=== PATIENT | male | born 2000 | race Caucasian/White ===

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

== ENCOUNTER 2020-10-24 11:09 | Emergency (ER) | payer MEDICAID ==
--- NOTE | 2020-10-24 11:43 | ERPHSYRPT ---
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 Pt denies trauma/difficulty swallowing/ST/fever/cough/coryza. He has a h/o Langerhan's Cell Histiocytosis. Timing/Duration: days (2 days) Severity: mild ENT Location: throat (anterior cervical) Prearrival Treatment: no prearrival treatment Modifying Factors: Improves With: other (Worse w direct pressure) Associated Symptoms: denies symptoms Allergies/Adverse Reactions: NSAIDS (Non-Steroidal Anti-Inflamma Allergy (Verified 10/24/20 11:21) Penicillins Allergy (Verified 10/24/20 11:21) aspirin Adverse Reaction (Verified 10/24/20 11:21) ibuprofen [From Motrin] Adverse Reaction (Verified 10/24/20 11:21) bees Allergy (Uncoded 10/24/20 11:21) bees Home Medications: Albuterol Common Canister [Proventil Common Canister] 2 puff IH BIDPRN 09/21/13 [History] Hx Tetanus, Diphtheria Vaccination/Date Given: Yes Hx Influenza Vaccination/Date Given: Yes Hx Pneumococcal Vaccination/Date Given: No Travel Risk - International Travel Have you traveled outside of the country in past 3 weeks: No - Coronavirus Screening Are you exhibiting any of the following symptoms?: No Close contact with a COVID-19 positive Pt in past 14-21 Days: No - Vaccine Status Have you recieved a Covid-19 vaccination: No - Review of Systems Constitutional: No Symptoms Eyes: No Symptoms Ears, Nose, & Throat: No Symptoms Respiratory: No Symptoms Cardiac: No Symptoms Abdominal/Gastrointestinal: No Symptoms Genitourinary Symptoms: No Symptoms Musculoskeletal: No Symptoms Skin: No Symptoms Neurological: No Symptoms Psychological: No Symptoms Endocrine: No Symptoms Hematologic/Lymphatic: No Symptoms Immunological/Allergic: No Symptoms - Past Medical History Pertinent Past Medical History: Yes Neurological History: Other ENT History: No Pertinent History Cardiac History: No Pertinent History Respiratory History: Asthma Endocrine Medical History: No Pertinent History Musculoskeletal History: No Pertinent History GI Medical History: No Pertinent History History: No Pertinent History Psycho-Social History: No Pertinent History Male Reproductive Disorders: No Pertinent History Other Medical History: histiocytosis - Past Surgical History Past Surgical History: Yes Neuro Surgical History: Neurological Surgery Cardiac: No Pertinent History Respiratory: No Pertinent History Gastrointestinal: No Pertinent History Genitourinary: No Pertinent History Musculoskeletal: No Pertinent History Male Surgical History: No Pertinent History Other Surgical History: RESECTION OF SKULL LESION, TONSILS/ADENOIDS - Social History Smoking Status: Never smoker Exposure to second hand smoke: Yes Drug Use: none Patient Lives Alone: No Significant Family History: no pertinent family hx - Nursing Vital Signs Nursing Vital Signs: Initial Vital Signs Temperature 98.2 F 10/24/20 11:12 Pulse Rate 65 10/24/20 11:12 Blood Pressure 138/79 10/24/20 11:12 O2 Sat by Pulse Oximetry 100 10/24/20 11:12 Pain Scale Pain Intensity 2 - Physical Exam General Appearance: no apparent distress Eye Exam: bilateral eye: normal inspection, PERRL, EOMI Ear Exam: bilateral ear: auricle normal, canal normal, TM normal Nasal Exam: normal inspection Throat Exam: pharynx normal, moist mucus membranes, No dental tenderness, No excessive drooling, No foreign body, No mandibular swelling, No maxillary swelling, No pharynx swelling, No tongue swollen, No tonsillar exudate, No tonsillar swelling, No trismus, No uvula swelling, No voice changes Neck Exam: trachea midline, tender lateral (TTP lateral to thyroid cartilige/No palpable mass/No erythema), No JVD, No limited range of motion Cardiovascular/Respiratory Exam: normal breath sounds, regular rate/rhythm, heart sounds normal Abdominal Exam: non-tender, soft, no organomegaly Neurologic Exam: alert, oriented x 3, cooperative, brick wheeler II-XII nml as tested, normal mood/affect, nml station & gait, sensation nml, No motor deficits, No sensory deficit Skin Exam: normal color, warm, dry, No rash, No petechiae SpO2 Interpretation: normal SpO2: 100 O2 Delivery: Room Air - Course Nursing assessment & vital signs reviewed: Yes - CT Exams Soft Tissue Neck CT Interpretation: Tele-radiologist Report (NAD) Ordered Tests: Active Orders 24 hr Category Date Time Status NECK WITH CONTRAST [CT] Routine Exams 10/24/20 11:57 Taken - Progress Progress: unchanged Counseled pt/family regarding: need for follow-up - Departure Departure Disposition: Home Clinical Impression: Anterior neck pain Condition: Stable Critical Care Time: No Referrals: BHAVESH OJSHUA [Primary Care Provider] - Instructions: Generalized Neck Pain (DC) Additional Instructions: Follow up with your family MD Return to ER for increasing pain/swelling/redness/Temperature greater than 100.5
[2020-10-24 13:09] VITALS: BP 134/66; PULSE 52
[2020-10-24 15:42] VITALS: O2SAT 100
--- NOTE | 2020-10-24 18:58 | XRAY ---
Indication: Left anterior neck pain 2 days. Multiple contiguous axial images obtained through the neck using 60 cc Isovue 370 contrast. Comparison: None Parotid and submandibular glands are bilaterally symmetric. No pathologic cervical or supraclavicular lymphadenopathy. Thyroid gland enhances homogeneously. Major arteries and veins are normal in course and caliber. Supra and infraglottic airway are widely patent. Normal epiglottis. Cervical spine intact. No acute fracture or suspicious bony lesions. Base of the brain and lung apices are unremarkable. Impression: Negative CT neck with contrast exam. Comment: Preliminary interpretation was made by [facility]. No critical discrepancy.
== END 2020-10-24 13:09 | disposition home or self-care (01) ==
LOC: ED 11:09
DX: M54.2 Cervicalgia (principal)
CPT/HCPCS: 36000; 70491; 99284

== ENCOUNTER 2021-02-16 10:29 | Emergency (ER) | payer MEDICAID ==
[2021-02-16 11:19] LABS: Appearance CLEAR (CLEAR); Bilirubin NEGATIVE (NEGATIVE); Blood NEGATIVE Ery/ul (0-5); Glucose NEGATIVE (NEGATIVE); Ketones SMALL (NEGATIVE); Leukocyte Esterase NEGATIVE (NEGATIVE); Nitrite NEGATIVE (NEGATIVE); Protein,Urine Dip NEGATIVE (Negative); Specific Gravity 1.016 (1.005-1.025); Urobilinogen 4 mg/dL (0-1)
--- NOTE | 2021-02-16 11:24 | ERPHSYRPT ---
- History of Present Illness Time Seen by Provider: 02/16/21 10:50 Source: patient Exam Limitations: no limitations Patient Subjective Stated Complaint: Pt states that he has been to 2 different hospitals in the past 2 days due to anxiety and he is now at this ER due to an xiety and states that it is now causing him difficulty breathing and his fingers tingling, pt was given lorazepam 0.5 mg and Arnuity inhailer from one of the other hospitals, pt has called Dr. Yoon office and has an appt for Triage Nursing Assessment: Pt brought self to the ER, hypertensive, denies pain, states that anxiety is a new diagnosis to him and it's causing more anxiety, skin n/w/d, pulses normal, breathing normal, doesn't appear to be in any distre ss Physician History: This is a 20-year-old white male who has symptoms consistent with anxiety and panic disorder. This is the third hospital visit with the same symptoms of shortness of breath, feeling of doom numbness and tingling in his lower extremities and mild chest pain. Patient was seen at [facility] 2 days ago and diagnosed with anxiety disorder. That facility sent in a prescription for lorazepam which he just picked up this morning. Yesterday e , patient was seen at [facility] emergency department for similar symptoms. The diagnosis was the same. That is, anxiety/panic disorder. Yesterday, because of his symptoms, patient took 4 hydroxyzine tablets (strength unknown) within 2 to 3-hour period of time. Patient states that when he is not feeling well, described as short of breath or nauseated, he takes Sudafed. He did yesterday as well. He occasionally uses marijuana. Patient denies methamphetamine use. Patient has an appointment to see his primary care physician, Dr. Singh tomorrow. He just picked up this prescription today and took 1 tablet of lorazepam 0.5 mg. Patient denies suicidal or homicidal thoughts or ideation. Patient also has a history of asthma. His room air oxygenation saturation levels 100%. Patient has history of Langerhans' cell histiocytosis Timing/Duration: day(s) (3) Severity of Symptoms-Max: mild Severity of Symptoms-Current: mild Associated Symptoms: anxiety Previous symptoms: same symptoms as today, recently seen, recently treated Allergies/Adverse Reactions: NSAIDS (Non-Steroidal Anti-Inflamma Allergy (Verified 02/16/21 10:47) Penicillins Allergy (Verified 02/16/21 10:47) aspirin Adverse Reaction (Verified 02/16/21 10:47) ibuprofen [From Motrin] Adverse Reaction (Verified 02/16/21 10:47) bees Allergy (Uncoded 02/16/21 10:47) bees Home Medications: Albuterol Common Canister [Proventil Common Canister] 2 puff IH BIDPRN 09/21/13 [History] Fluticasone Furoate [Arnuity Ellipta] 1 mcg IH UD 02/16/21 [History] Lorazepam 0.5 mg [Ativan 0.5 MG] 0.5 mg PO BID 02/16/21 [History] Hx Tetanus, Diphtheria Vaccination/Date Given: Yes Hx Influenza Vaccination/Date Given: Yes Hx Pneumococcal Vaccination/Date Given: No Travel Risk - International Travel Have you traveled outside of the country in past 3 weeks: No - Coronavirus Screening Are you exhibiting any of the following symptoms?: No Close contact with a COVID-19 positive Pt in past 14-21 Days: No - Vaccine Status Have you recieved a Covid-19 vaccination: No - Past Medical History Pertinent Past Medical History: Yes Neurological History: Other ENT History: No Pertinent History Cardiac History: No Pertinent History Respiratory History: Asthma Endocrine Medical History: No Pertinent History Musculoskeletal History: No Pertinent History GI Medical History: No Pertinent History History: No Pertinent History Psycho-Social History: Anxiety Male Reproductive Disorders: No Pertinent History Other Medical History: histiocytosis - Past Surgical History Past Surgical History: Yes Neuro Surgical History: Neurological Surgery Cardiac: No Pertinent History Respiratory: No Pertinent History Gastrointestinal: No Pertinent History Genitourinary: No Pertinent History Musculoskeletal: No Pertinent History Male Surgical History: No Pertinent History Other Surgical History: RESECTION OF SKULL LESION, TONSILS/ADENOIDS - Social History Smoking Status: Never smoker Exposure to second hand smoke: Yes Drug Use: marijuana Patient Lives Alone: No Significant Family History: no pertinent family hx - Review of Systems Constitutional: No Symptoms Eyes: No Symptoms Ears, Nose, & Throat: No Symptoms Respiratory: Dyspnea Cardiac: Chest Pain, Palpitations Abdominal/Gastrointestinal: No Symptoms Genitourinary Symptoms: No Symptoms Musculoskeletal: No Symptoms Skin: No Symptoms Neurological: No Symptoms Psychological: Anxiety, No Suicidal Ideations, No Homicidal Ideations, No Emotional Lability Endocrine: No Symptoms Hematologic/Lymphatic: No Symptoms Immunological/Allergic: No Symptoms All Other Systems: Reviewed and Negative - Nursing Vital Signs Nursing Vital Signs: Initial Vital Signs Temperature 99.7 F 02/16/21 10:37 Pulse Rate 77 02/16/21 10:37 Blood Pressure 145/90 02/16/21 10:37 O2 Sat by Pulse Oximetry 100 02/16/21 10:37 Pain Scale Pain Intensity 0 - Physical Exam General Appearance: no apparent distress, alert, anxiety Eyes, Ears, Nose, Throat Exam: normal ENT inspection, moist mucous membranes Neck Exam: normal inspection, non-tender, supple, full range of motion Respiratory Exam: normal breath sounds, lungs clear, airway intact, No chest tenderness, No respiratory distress Cardiovascular Exam: regular rate/rhythm, normal heart sounds, normal peripheral pulses Neurological Exam: alert, normal mood/affect, 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 The EKG readout says suggests acute pericarditis. However the patient is not having that type of symptom. There is no comparison EKG.) Ordered Tests: Active Orders 24 hr Category Date Time Status EKG-ER Only STAT Care 02/16/21 11:04 Active CBC W DIFF Stat Lab 02/16/21 11:20 Completed CMP Stat Lab 02/16/21 11:20 Completed D-DIMER QUANTITATIVE Stat Lab 02/16/21 11:32 Completed MAGNESIUM Stat Lab 02/16/21 11:20 Completed TROPONIN Q3H Lab 02/16/21 11:20 Completed TROPONIN Q3H Lab 02/16/21 14:15 Ordered TROPONIN Q3H Lab 02/16/21 17:15 Ordered TROPONIN Q3H Lab 02/16/21 20:15 Ordered TROPONIN Q3H Lab 02/16/21 23:15 Ordered UA W/RFX UR CULTURE Stat Lab 02/16/21 11:11 Completed Urine Triage Profile Stat Lab 02/16/21 11:11 Completed Lab/Rad Data: Laboratory Result Diagrams 02/16/21 11:20 02/16/21 11:20 Laboratory Results 02/16/21 02/16/21 02/16/21 Range/Units 11:32 11:20 11:20 WBC (4.0-10.5) K/mm3 RBC (4.1-5.6) M/mm3 Hgb (12.5-18.0) gm/dl Hct (42-50) % MCV (78-100) fl MCH (26-32) pg MCHC (32-36) g/dl RDW (11.5-14.0) % Plt Count (150-450) K/mm3 MPV (7.5-11.0) fl Gran % (36.0-66.0) % Eos # (Auto) (0-0.5) Absolute Lymphs (auto) (1.0-4.6) Absolute Monos (auto) (0.0-1.3) Lymphocytes % (24.0-44.0) % Monocytes % (0.0-12.0) % Eosinophils % (0.00-5.0) % Basophils % (0.0-0.4) % Absolute Granulocytes (1.4-6.9) Basophils # (0-0.4) D-Dimer < 215 L (215-500) ng/mL Sodium 139 (137-145) mmol/L Potassium 3.9 (3.5-5.1) mmol/L Chloride 105 (98-107) mmol/L Carbon Dioxide 18 L (22-30) mmol/L Anion Gap 20.1 H (5-15) MEQ/L BUN 9 (9-20) mg/dL Creatinine 0.97 (0.66-1.25) mg/dL Estimated GFR > 60.0 ML/MIN Glucose 99 (74-106) mg/dL Calcium 10.1 (8.4-10.2) mg/dL Magnesium 1.7 (1.6-2.3) mg/dL Total Bilirubin 1.20 (0.2-1.3) mg/dL AST 23 (17-59) U/L ALT 12 (0-50) U/L Alkaline Phosphatase 73 (38-126) U/L Troponin I < 0.012 (0.000-0.034) ng/mL Serum Total Protein 7.9 (6.3-8.2) g/dL Albumin 4.8 (3.5-5.0) g/dL Urine Color (YELLOW) Urine Appearance (CLEAR) Urine pH (5-6) Ur Specific [place] (1.005-1.025) Urine Protein (Negative) Urine Ketones (NEGATIVE) Urine Blood (0-5) Clyde/ul Urine Nitrite (NEGATIVE) Urine Bilirubin (NEGATIVE) Urine Urobilinogen (0-1) mg/dL Ur Leukocyte Esterase (NEGATIVE) Urine WBC (Auto) (0-5) /HPF Urine RBC (Auto) (0-2) /HPF Urine Culture Reflexed (NO) Urine Glucose (NEGATIVE) mg/dL Urine Opiates Level (NEGATIVE) Ur Methadone (NEGATIVE) Urine Barbiturates (NEGATIVE) Ur Phencyclidine (PCP) (NEGATIVE) Urine Amphetamine (NEGATIVE) U Benzodiazepine Level (NEGATIVE) Urine Cocaine (NEGATIVE) Urine Marijuana (THC) (NEGATIVE) 02/16/21 02/16/21 02/16/21 Range/Units 11:20 11:11 11:11 WBC 6.8 (4.0-10.5) K/mm3 RBC 5.21 (4.1-5.6) M/mm3 Hgb 15.6 (12.5-18.0) gm/dl Hct 46.0 (42-50) % MCV 88.3 (78-100) fl MCH 29.9 (26-32) pg MCHC 33.9 (32-36) g/dl RDW 12.4 (11.5-14.0) % Plt Count 220 (150-450) K/mm3 MPV 11.7 H (7.5-11.0) fl Gran % 73.9 H (36.0-66.0) % Eos # (Auto) 0.01 (0-0.5) Absolute Lymphs (auto) 1.23 (1.0-4.6) Absolute Monos (auto) 0.52 (0.0-1.3) Lymphocytes % 18.1 L (24.0-44.0) % Monocytes % 7.6 (0.0-12.0) % Eosinophils % 0.1 (0.00-5.0) % Basophils % 0.3 (0.0-0.4) % Absolute Granulocytes 5.02 (1.4-6.9) Basophils # 0.02 (0-0.4) D-Dimer (215-500) ng/mL Sodium (137-145) mmol/L Potassium (3.5-5.1) mmol/L Chloride (98-107) mmol/L Carbon Dioxide (22-30) mmol/L Anion Gap (5-15) MEQ/L BUN (9-20) mg/dL Creatinine (0.66-1.25) mg/dL Estimated GFR ML/MIN Glucose (74-106) mg/dL Calcium (8.4-10.2) mg/dL Magnesium (1.6-2.3) mg/dL Total Bilirubin (0.2-1.3) mg/dL AST (17-59) U/L ALT (0-50) U/L Alkaline Phosphatase (38-126) U/L Troponin I (0.000-0.034) ng/mL Serum Total Protein (6.3-8.2) g/dL Albumin (3.5-5.0) g/dL Urine Color YELLOW (YELLOW) Urine Appearance CLEAR (CLEAR) Urine pH 7.0 (5-6) Ur Specific [place] 1.016 (1.005-1.025) Urine Protein NEGATIVE (Negative) Urine Ketones SMALL (NEGATIVE) Urine Blood NEGATIVE (0-5) Clyde/ul Urine Nitrite NEGATIVE (NEGATIVE) Urine Bilirubin NEGATIVE (NEGATIVE) Urine Urobilinogen 4 (0-1) mg/dL Ur Leukocyte Esterase NEGATIVE (NEGATIVE) Urine WBC (Auto) NONE (0-5) /HPF Urine RBC (Auto) NONE (0-2) /HPF Urine Culture Reflexed NO (NO) Urine Glucose NEGATIVE (NEGATIVE) mg/dL Urine Opiates Level NEGATIVE (NEGATIVE) Ur Methadone NEGATIVE (NEGATIVE) Urine Barbiturates NEGATIVE (NEGATIVE) Ur Phencyclidine (PCP) NEGATIVE (NEGATIVE) Urine Amphetamine NEGATIVE (NEGATIVE) U Benzodiazepine Level NEGATIVE (NEGATIVE) Urine Cocaine NEGATIVE (NEGATIVE) Urine Marijuana (THC) POSITIVE (NEGATIVE) - Departure Departure Disposition: Home Clinical Impression: Anxiety Condition: Stable Critical Care Time: No Referrals: BHAVESH SINGH [Primary Care Provider] - Additional Instructions: Take your medication as prescribed. Keep your medical appointment with your primary care doctor that is scheduled tomorrow.
[2021-02-16 11:34] LABS: Absolute Neutrophil Ct (ANC) 5.02 (1.4-6.9); BASOPHIL % 0.3 % (0.0-0.4); Basophil (Absolute #) 0.02 (0-0.4); Eosinophil % 0.1 % (0.00-5.0); Eosinophil (Absolute #) 0.01 (0-0.5); Hemoglobin 15.6 gm/dl (12.5-18.0); Lymphocyte (Absolute #) 1.23 (1.0-4.6); Lymphocytes % 18.1 % (24.0-44.0); Mean Cell Volume 88.3 fl (78-100); Mean Corpuscular Hemoglobin 29.9 pg (26-32); Mean Corpuscular Hgb Concent. 33.9 g/dl (32-36); Mean Platelet Volume 11.7 fl (7.5-11.0); Monocyte (Absolute #) 0.52 (0.0-1.3); Monocytes % 7.6 % (0.0-12.0); Neutrophil % 73.9 % (36.0-66.0); Platelet Count 220 K/mm3 (150-450); Red Blood Count 5.21 M/mm3 (4.1-5.6); Red Cell Distribution Width 12.4 % (11.5-14.0); White Blood Count 6.8 K/mm3 (4.0-10.5)
[2021-02-16 11:36] LABS: Amphetamine,Urine NEGATIVE (NEGATIVE); Barbiturate,Urine NEGATIVE (NEGATIVE); Benzodiazepine,Urine NEGATIVE (NEGATIVE); Cocaine,Urine NEGATIVE (NEGATIVE); Methadone,Urine NEGATIVE (NEGATIVE); Opiate,Urine NEGATIVE (NEGATIVE); PCP,Urine NEGATIVE (NEGATIVE); THC,Urine POSITIVE (NEGATIVE)
[2021-02-16 12:06] LABS: ALBUMIN 4.8 g/dL (3.5-5.0); ALKALINE PHOSPHATASE 73 U/L (38-126); ANION GAP 20.1 MEQ/L (5-15); BLOOD UREA NITROGEN 9 mg/dL (9-20); CHLORIDE 105 mmol/L (98-107); Calcium 10.1 mg/dL (8.4-10.2); Carbon Dioxide 18 mmol/L (22-30); Creatinine 1 0.97 mg/dL (0.66-1.25); EST GLOMERULAR FILTRATION RATE > 60.0 ML/MIN; Glucose 99 mg/dL (74-106); MAGNESIUM 1.7 mg/dL (1.6-2.3); Potassium 3.9 mmol/L (3.5-5.1); SGOT/AST 23 U/L (17-59); SGPT/ALT 12 U/L (0-50); SODIUM 139 mmol/L (137-145); Total Protein 7.9 g/dL (6.3-8.2)
[2021-02-16 12:17] VITALS: BP 134/71; PULSE 60
[2021-02-16 12:39] VITALS: O2SAT 100
== END 2021-02-16 12:45 | disposition home or self-care (01) ==
LOC: ED 10:29
DX: F41.9 Anxiety disorder, unspecified (principal)
CPT/HCPCS: 36415; 80053; 80307; 81001; 83735; 84484; 85025; 85379; 93005; 99284

== ENCOUNTER 2021-03-22 14:48 | Emergency (ER) | payer MEDICAID ==
[2021-03-22] MEDS ORDERED: KLONOPIN PO STA (15:23)
[2021-03-22 16:00] VITALS: BP 143/92; PULSE 64
[2021-03-22 16:04] VITALS: O2SAT 99
--- NOTE | 2021-03-22 16:04 | ERPHSYRPT ---
- History of Present Illness Time Seen by Provider: 03/22/21 14:55 Patient Subjective Stated Complaint: anxiety Triage Nursing Assessment: Patient ambulated back to ED and transferred self to bed. Patient A+O X3. Patient's skin pink, warm and dry. Patient complains of feeling anxious, numb and jittery. Patient also complains of N/V. Patient states he was seen in [facility] care this am for cough/congestion and prescribed Prednisone 40mg and Tessalon pearls. Patient has also been without his Klonopin for 5 days. Patient denies pain or discomfort. Patient was also tested for COVID today with results pending. Physician History: Patient is a 20-year-old male who has been on constant doses of Klonopin for several weeks. He presents after he ran out and could not get into his family physician's office because he had symptoms of Covid. He presents to the ER requesting a refill on his Klonopin. Timing/Duration: yesterday Severity of Symptoms-Max: moderate Severity of Symptoms-Current: moderate Associated Symptoms: anxiety Previous symptoms: same symptoms as today Allergies/Adverse Reactions: NSAIDS (Non-Steroidal Anti-Inflamma Allergy (Verified 03/22/21 14:54) Penicillins Allergy (Verified 03/22/21 14:54) aspirin Adverse Reaction (Verified 03/22/21 14:54) ibuprofen [From Motrin] Adverse Reaction (Verified 03/22/21 14:54) bees Allergy (Uncoded 03/22/21 14:54) bees Home Medications: Albuterol Common Canister [Proventil Common Canister] 2 puff IH BIDPRN 09/21/13 [History] Fluticasone Furoate [Arnuity Ellipta] 1 mcg IH UD 02/16/21 [History] Paroxetine HCl 20 mg [Paxil 20 MG] 1 tab PO DAILY 03/22/21 [History] Hx Tetanus, Diphtheria Vaccination/Date Given: Yes Hx Influenza Vaccination/Date Given: No Hx Pneumococcal Vaccination/Date Given: No Immunizations Up to Date: Yes Travel Risk - International Travel Have you traveled outside of the country in past 3 weeks: No - Coronavirus Screening Are you exhibiting any of the following symptoms?: Yes Symptoms: Cough: New Onset Close contact with a COVID-19 positive Pt in past 14-21 Days: No - Vaccine Status Have you recieved a Covid-19 vaccination: No - Past Medical History Pertinent Past Medical History: Yes Neurological History: Other ENT History: No Pertinent History Cardiac History: No Pertinent History Respiratory History: Asthma Endocrine Medical History: No Pertinent History Musculoskeletal History: No Pertinent History GI Medical History: No Pertinent History History: No Pertinent History Psycho-Social History: Anxiety Male Reproductive Disorders: No Pertinent History Other Medical History: histiocytosis - Past Surgical History Past Surgical History: Yes Neuro Surgical History: Neurological Surgery Cardiac: No Pertinent History Respiratory: No Pertinent History Gastrointestinal: No Pertinent History Genitourinary: No Pertinent History Musculoskeletal: No Pertinent History Male Surgical History: No Pertinent History Other Surgical History: RESECTION OF SKULL LESION, TONSILS/ADENOIDS - Social History Smoking Status: Never smoker Exposure to second hand smoke: Yes Drug Use: marijuana Patient Lives Alone: No Significant Family History: no pertinent family hx - Review of Systems Constitutional: No Fever, No Chills Eyes: No Symptoms Ears, Nose, & Throat: No Symptoms Respiratory: No Cough, No Dyspnea Cardiac: No Chest Pain, No Edema, No Syncope Abdominal/Gastrointestinal: No Abdominal Pain, No Nausea, No Vomiting, No Diarrhea Genitourinary Symptoms: No Dysuria Musculoskeletal: No Back Pain, No Neck Pain Skin: No Rash Neurological: No Dizziness, No Focal Weakness, No Sensory Changes Psychological: No Symptoms Endocrine: No Symptoms All Other Systems: Reviewed and Negative - Nursing Vital Signs Nursing Vital Signs: Initial Vital Signs Temperature 98.5 F 03/22/21 14:55 Pulse Rate 74 03/22/21 14:55 Respiratory Rate 18 03/22/21 14:55 Blood Pressure 179/103 03/22/21 14:55 O2 Sat by Pulse Oximetry 99 03/22/21 14:55 Pain Scale Pain Intensity 0 - Physical Exam General Appearance: mild distress Eyes, Ears, Nose, Throat Exam: normal ENT inspection, moist mucous membranes Neck Exam: normal inspection, non-tender, supple Respiratory Exam: normal breath sounds, lungs clear, No respiratory distress Cardiovascular Exam: regular rate/rhythm, No edema Gastrointestinal/Abdominal Exam: soft, No tenderness, No distention Extremities Exam: normal inspection, normal range of motion, No evidence of injury, No edema Current Suicidality: denies suicide plan Neurological Exam: alert, sagger soak II-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 nml as tested, oriented x 3 Skin Exam: normal color, warm, dry, No rash SpO2: 99 - Course Nursing assessment & vital signs reviewed: Yes Ordered Tests: Medication Summary Discontinued Medications Generic Name Dose Route Start Last Admin Trade Name Clarita PRN Reason Stop Dose Admin Clonazepam 1 mg 03/22/21 15:23 03/22/21 15:34 Klonopin PO 03/22/21 15:24 1 mg ONCE STA Administration - Progress Progress: improved - Departure Departure Disposition: Home Clinical Impression: Anxiety Condition: Stable Critical Care Time: No Referrals: BHAVESH JOSHUA [Primary Care Provider] - Instructions: Anxiety, Adult (DC) Prescriptions: Clonazepam [Klonopin] 0.5 mg PO TID 3 Days #9 tablet
== END 2021-03-22 16:08 | disposition home or self-care (01) ==
LOC: ED 14:48
DX: F41.9 Anxiety disorder, unspecified (principal)
CPT/HCPCS: 99283

== ENCOUNTER 2022-04-02 20:50 | Emergency (ER) | payer MEDICAID ==
[2022-04-02 21:27] VITALS: O2SAT 98
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
[2022-04-02] MEDS ORDERED: Sodium Chloride 0.9% 1000 ML 1,000 ML IV STA (22:01)
[2022-04-02 22:22] LABS: Absolute Neutrophil Ct (ANC) 10.77 x10^3/uL (1.4-6.9); Basophil (Absolute #) 0.04 x10^3/uL (0-0.4); Eosinophil % 0.2 % (0.00-5.0); Eosinophil (Absolute #) 0.03 x10^3/uL (0-0.5); Hemoglobin 14.2 g/dL (12.5-18.0); Lymphocytes % 7.9 % (24.0-44.0); Mean Cell Volume 90.1 fL (78-100); Mean Corpuscular Hemoglobin 29.8 pg (26-32); Mean Platelet Volume 11.9 fL (7.5-11.0); Monocyte (Absolute #) 0.74 x10^3/uL (0.0-1.3); Monocytes % 5.8 % (0.0-12.0); Neutrophil % 85.2 % (36.0-66.0); Platelet Count 223 x10^3/uL (150-450); Red Blood Count 4.77 x10^6/uL (4.1-5.6); Red Cell Distribution Width 11.5 % (11.5-14.0); White Blood Count 12.7 x10^3/uL (4.0-10.5)
[2022-04-02 22:35] LABS: ALBUMIN 4.6 g/dL (3.5-5.0); ALKALINE PHOSPHATASE 74 U/L (38-126); ANION GAP 14.3 MEQ/L (5-15); BLOOD UREA NITROGEN 14 mg/dL (9-20); CHLORIDE 103 mmol/L (98-107); Calcium 9.4 mg/dL (8.4-10.2); Carbon Dioxide 25 mmol/L (22-30); Creatinine 1 1.15 mg/dL (0.66-1.25); EST GLOMERULAR FILTRATION RATE > 60.0 ML/MIN; Glucose 88 mg/dL (74-106); LIPASE 55 U/L (23-300); Potassium 3.9 mmol/L (3.5-5.1); SGOT/AST 41 U/L (17-59); SGPT/ALT 25 U/L (0-50); SODIUM 139 mmol/L (137-145); Total Protein 7.9 g/dL (6.3-8.2)
[2022-04-02 23:27] VITALS: BP 141/65
[2022-04-02] MEDS ORDERED: MORPHINE SULFATE 4 MG INJ IV ONE (23:45)
[2022-04-02] MEDS ORDERED: MORPHINE SULFATE 4 MG INJ ONE (23:51)
[2022-04-02] MEDS ORDERED: Sodium Chloride 0.9% 1000 ML 1,000 ML ONE (23:51)
[2022-04-03 00:02] VITALS: PULSE 64
[2022-04-03] MEDS ORDERED: Adacel Vial IM ONE ×2 (00:03→00:07)
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
== END 2022-04-03 00:45 | disposition home or self-care (01) ==
LOC: ED 20:50
DX: S06.0X0A Concussion without loss of consciousness, initial encounter (principal); S81.001A Unspecified open wound, right knee, initial encounter; S83.91XA Sprain of unspecified site of right knee, initial encounter; S80.812A Abrasion, left lower leg, initial encounter; S80.811A Abrasion, right lower leg, initial encounter; S40.812A Abrasion of left upper arm, initial encounter; S40.811A Abrasion of right upper arm, initial encounter; T14.8XXA Other injury of unspecified body region, initial encounter; V86.05XA Driver of 3- or 4- wheeled all-terrain vehicle (ATV) injured in traffic accident, initial encounter; Z79.899 Other long term (current) drug therapy; Z28.310 Unvaccinated for COVID-19
CPT/HCPCS: 36000; 36415; 70450; 71250; 72125; 73700; 74176; 80053; 83605; 83690; 84484; 85025; 90471; 90715; 93005; 96374; 99285; J2270

== ENCOUNTER 2022-05-30 12:59 | Emergency (ER) | payer MEDICAID ==
--- NOTE | 2022-05-30 13:12 | ERPHSYRPT ---
- History of Present Illness Time Seen by Provider: 05/30/22 13:12 Source: patient Exam Limitations: no limitations Physician History: This is a 22-year-old white male patient of Dr. Singh who has a history of anxiety and panic disorder and presents with a cough for 2 weeks which has not worsened but has been persistent and who also has run out of his Klonopin anxiet y medicine. Symptoms have anxiety have been worse in the last 2 to 3 days. Patient denies being suicidal. He denies being homicidal. Patient has a history of Langerhans' cell histiocytosis. Patient has not been on any new medications. He denies illicit drug use. He cannot refill his Klonopin until 06/01/2022. Timing/Duration: day(s) (2 to 3 days) Severity of Symptoms-Max: mild (To moderate) Severity of Symptoms-Current: mild (To moderate) Context related to: other (Health anxiety issues) Associated Symptoms: anxiety Previous symptoms: same symptoms as today, no recent treatment Allergies/Adverse Reactions: NSAIDS (Non-Steroidal Anti-Inflamma Allergy (Verified 05/30/22 13:05) Penicillins Allergy (Verified 05/30/22 13:05) aspirin Adverse Reaction (Verified 05/30/22 13:05) ibuprofen [From Motrin] Adverse Reaction (Verified 05/30/22 13:05) bees Allergy (Uncoded 05/30/22 13:05) bees Home Medications: Albuterol Common Canister [Proventil Common Canister] 2 puff IH BIDPRN 09/21/13 [History] Fluticasone Furoate [Arnuity Ellipta] 1 mcg IH UD 02/16/21 [History] Paroxetine HCl 20 mg [Paxil 20 MG] 1 tab PO DAILY 03/22/21 [History] Hx Tetanus, Diphtheria Vaccination/Date Given: No Hx Influenza Vaccination/Date Given: No Hx Pneumococcal Vaccination/Date Given: No Travel Risk - International Travel Have you traveled outside of the country in past 3 weeks: No - Coronavirus Screening Are you exhibiting any of the following symptoms?: No Close contact with a COVID-19 positive Pt in past 14-21 Days: No - Vaccine Status Have you recieved a Covid-19 vaccination: No - Past Medical History Pertinent Past Medical History: Yes Neurological History: Other ENT History: No Pertinent History Cardiac History: No Pertinent History Respiratory History: Asthma Endocrine Medical History: No Pertinent History Musculoskeletal History: No Pertinent History GI Medical History: No Pertinent History History: No Pertinent History Psycho-Social History: Anxiety Male Reproductive Disorders: No Pertinent History Other Medical History: histiocytosis - Past Surgical History Past Surgical History: Yes Neuro Surgical History: Neurological Surgery Cardiac: No Pertinent History Respiratory: No Pertinent History Gastrointestinal: No Pertinent History Genitourinary: No Pertinent History Musculoskeletal: No Pertinent History Male Surgical History: No Pertinent History Other Surgical History: RESECTION OF SKULL LESION, TONSILS/ADENOIDS - Social History Smoking Status: Never smoker Exposure to second hand smoke: No Drug Use: marijuana Patient Lives Alone: No Significant Family History: no pertinent family hx - Review of Systems Constitutional: No Symptoms Eyes: No Symptoms Ears, Nose, & Throat: No Symptoms Respiratory: Cough Cardiac: No Symptoms Abdominal/Gastrointestinal: No Symptoms Genitourinary Symptoms: No Symptoms Musculoskeletal: No Symptoms Skin: No Symptoms Neurological: No Symptoms Psychological: Anxiety Endocrine: No Symptoms Hematologic/Lymphatic: No Symptoms Immunological/Allergic: No Symptoms All Other Systems: Reviewed and Negative - Nursing Vital Signs Nursing Vital Signs: Initial Vital Signs Temperature 98.9 F 05/30/22 13:07 Pulse Rate 69 05/30/22 13:07 Respiratory Rate 14 05/30/22 13:07 Blood Pressure 153/89 05/30/22 13:07 O2 Sat by Pulse Oximetry 100 05/30/22 13:07 Pain Scale Pain Intensity 0 - Physical Exam General Appearance: no apparent distress, alert, anxiety Eyes, Ears, Nose, Throat Exam: normal ENT inspection, moist mucous membranes Neck Exam: normal inspection, non-tender, supple, full range of motion Respiratory Exam: normal breath sounds, lungs clear, airway intact, No chest tenderness, No respiratory distress Cardiovascular Exam: regular rate/rhythm, normal heart sounds, normal peripheral pulses Gastrointestinal/Abdominal Exam: soft, normal bowel sounds, No tenderness Current Suicidality: denies suicide plan Neurological Exam: alert, normal mood/affect, cotton chopper II-XII nml as tested, oriented x 3, anxious Appearance: appropriate appearance, appropriate insight Behavior/Eye Contact/Speech: alert & cooperative, good eye contact, normal speech Thoughts/Hallucinations: normal thought pattern, no apparent hallucination Skin Exam: normal color, warm, dry SpO2 Interpretation: normal O2 Delivery: Room Air - Course Nursing assessment & vital signs reviewed: Yes Ordered Tests: Active Orders 24 hr Category Date Time Status CHEST 1 VIEW (PORTABLE) Stat Exams 05/30/22 13:19 Completed CBC W DIFF Stat Lab 05/30/22 13:40 Completed CMP Stat Lab 05/30/22 13:40 Completed Medication Summary Discontinued Medications Generic Name Dose Route Start Last Admin Trade Name Clarita PRN Reason Stop Dose Admin Lorazepam 1 mg 05/30/22 13:20 05/30/22 13:31 Lorazepam 2 Mg/1 Ml 2 Mg Vial IM 05/30/22 13:21 1 mg STAT ONE Administration Lorazepam Confirm 05/30/22 13:29 Lorazepam 2 Mg/1 Ml 2 Mg Vial Administered 05/30/22 13:30 Dose 2 mg .ROUTE .STK-MED ONE Lab/Rad Data: Laboratory Result Diagrams 05/30/22 13:40 05/30/22 13:40 Laboratory Results 05/30/22 05/30/22 Range/Units 13:40 13:40 WBC 8.3 (4.0-10.5) x10^3/uL RBC 5.40 (4.1-5.6) x10^6/uL Hgb 16.2 (12.5-18.0) g/dL Hct 47.3 (42-50) % MCV 87.6 (78-100) fL MCH 30.0 (26-32) pg MCHC 34.2 (32-36) g/dL RDW 11.9 (11.5-14.0) % Plt Count 265 (150-450) x10^3/uL MPV 11.3 H (7.5-11.0) fL Gran % 69.0 H (36.0-66.0) % Immature Gran % (Auto) 0.4 (0.00-0.4) % Nucleat RBC Rel Count 0.0 (0.00-0.1) % Eos # (Auto) 0.03 (0-0.5) x10^3/uL Immature Gran # (Auto) 0.03 (0.00-0.03) x10^3u/L Absolute Lymphs (auto) 1.90 (1.0-4.6) x10^3/uL Absolute Monos (auto) 0.56 (0.0-1.3) x10^3/uL Absolute Nucleated RBC 0.00 (0.00-0.01) x10^3u/L Lymphocytes % 23.0 L (24.0-44.0) % Monocytes % 6.8 (0.0-12.0) % Eosinophils % 0.4 (0.00-5.0) % Basophils % 0.4 (0.0-0.4) % Absolute Granulocytes 5.70 (1.4-6.9) x10^3/uL Basophils # 0.03 (0-0.4) x10^3/uL Sodium 136 L (137-145) mmol/L Potassium 3.7 (3.5-5.1) mmol/L Chloride 104 (98-107) mmol/L Carbon Dioxide 22 (22-30) mmol/L Anion Gap 13.6 (5-15) MEQ/L BUN 13 (9-20) mg/dL Creatinine 0.82 (0.66-1.25) mg/dL Estimated GFR > 60.0 ML/MIN Glucose 100 (74-106) mg/dL Calcium 9.8 (8.4-10.2) mg/dL Total Bilirubin 0.90 (0.2-1.3) mg/dL AST 23 (17-59) U/L ALT 18 (0-50) U/L Alkaline Phosphatase 82 (38-126) U/L Serum Total Protein 8.4 H (6.3-8.2) g/dL Albumin 4.9 (3.5-5.0) g/dL - Departure Departure Disposition: Home Clinical Impression: Anxiety about health Condition: Stable Critical Care Time: No Referrals: BHAVESH SINGH [Primary Care Provider] - Follow up/PCP as directed Additional Instructions: Take your medication as prescribed. Follow up with Dr. Singh for further evaluation and management.
[2022-05-30] MEDS ORDERED: Ativan 2 MG/1 ML VIAL IM ONE (13:20)
[2022-05-30] MEDS ORDERED: Ativan 2 MG/1 ML VIAL ONE (13:29)
[2022-05-30 13:52] LABS: Basophil (Absolute #) 0.03 x10^3/uL (0-0.4); Eosinophil % 0.4 % (0.00-5.0); Eosinophil (Absolute #) 0.03 x10^3/uL (0-0.5); Hematocrit 47.3 % (42-50); Hemoglobin 16.2 g/dL (12.5-18.0); Mean Cell Volume 87.6 fL (78-100); Mean Corpuscular Hgb Concent. 34.2 g/dL (32-36); Mean Platelet Volume 11.3 fL (7.5-11.0); Monocyte (Absolute #) 0.56 x10^3/uL (0.0-1.3); Monocytes % 6.8 % (0.0-12.0); Platelet Count 265 x10^3/uL (150-450); Red Cell Distribution Width 11.9 % (11.5-14.0); White Blood Count 8.3 x10^3/uL (4.0-10.5)
[2022-05-30 14:01] LABS: ALBUMIN 4.9 g/dL (3.5-5.0); ALKALINE PHOSPHATASE 82 U/L (38-126); ANION GAP 13.6 MEQ/L (5-15); BLOOD UREA NITROGEN 13 mg/dL (9-20); CHLORIDE 104 mmol/L (98-107); Calcium 9.8 mg/dL (8.4-10.2); Carbon Dioxide 22 mmol/L (22-30); Creatinine 1 0.82 mg/dL (0.66-1.25); EST GLOMERULAR FILTRATION RATE > 60.0 ML/MIN; Glucose 100 mg/dL (74-106); Potassium 3.7 mmol/L (3.5-5.1); SGOT/AST 23 U/L (17-59); SGPT/ALT 18 U/L (0-50); SODIUM 136 mmol/L (137-145); Total Protein 8.4 g/dL (6.3-8.2)
[2022-05-30 14:08] VITALS: O2SAT 99
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
[2022-05-30 15:15] VITALS: BP 152/77; PULSE 69
== END 2022-05-30 15:13 | disposition home or self-care (01) ==
LOC: ED 12:59
DX: F45.9 Somatoform disorder, unspecified (principal); R05.2 Subacute cough; Z79.899 Other long term (current) drug therapy; Z28.310 Unvaccinated for COVID-19
CPT/HCPCS: 36415; 71045; 80053; 85025; 96372; 99283; J2060

== ENCOUNTER 2022-08-19 09:13 | Emergency (ER) | payer MEDICAID ==
--- NOTE | 2022-08-19 09:16 | ERPHSYRPT ---
- History of Present Illness Time Seen by Provider: 08/19/22 09:16 Source: patient Exam Limitations: no limitations Physician History: This is a 22-year-old white male patient of Dr. Singh who presents with weakness and lack of desire to eat. He was seen by his primary care physician Dr. Singh on 08/18/2022 and they arranged an appointment with a psychologist on 08/21/2022. Patient, later in the day on 08/18/2022, was evaluated at [facility] emergency department and these records were reviewed by me. They performed a COVID test only. This result was negative. Patient has a history of anxiety and panic disorder as well as asthma and Langerhans' cell histio cytosis. Patient denies cough. He denies chest pain and denies shortness of breath. He has no abdominal pain. He has not had any vomiting or diarrhea symptoms. He has not had any fevers. Patient denies illicit drug use but does state that he took pseudoephedrine on Sunday and this past week. Patient is not suicidal or homicidal. Timing/Duration: day(s) (2 to 3 days), worse (1 to 2 days) Severity: mild Modifying Factors: Improves With: other (Loss of appetite) Associated Symptoms: loss of appetite, weakness, No nausea, No vomiting, No abdominal pain, No shortness of breath, No chest pain, No fever Allergies/Adverse Reactions: NSAIDS (Non-Steroidal Anti-Inflamma Allergy (Verified 08/19/22 09:28) Penicillins Allergy (Verified 08/19/22 09:28) aspirin Adverse Reaction (Verified 08/19/22 09:28) ibuprofen [From Motrin] Adverse Reaction (Verified 08/19/22 09:28) bees Allergy (Uncoded 08/19/22 09:28) bees Home Medications: Albuterol Common Canister [Proventil Common Canister] 2 puff IH BIDPRN 09/21/13 [History] Fluticasone Furoate [Arnuity Ellipta] 1 mcg IH UD 02/16/21 [History] Paroxetine HCl 20 mg [Paxil 20 MG] 1 tab PO DAILY 03/22/21 [History] Hx Tetanus, Diphtheria Vaccination/Date Given: No Hx Influenza Vaccination/Date Given: No Hx Pneumococcal Vaccination/Date Given: No Travel Risk - International Travel Have you traveled outside of the country in past 3 weeks: No - Coronavirus Screening Are you exhibiting any of the following symptoms?: No Close contact with a COVID-19 positive Pt in past 14-21 Days: No - Vaccine Status Have you recieved a Covid-19 vaccination: No - Review of Systems Constitutional: Weakness Eyes: No Symptoms Ears, Nose, & Throat: No Symptoms Respiratory: No Symptoms Cardiac: No Symptoms Abdominal/Gastrointestinal: Appetite Changes, No Abdominal Pain, No Nausea, No Vomiting, No Diarrhea, No Constipation Genitourinary Symptoms: No Symptoms Musculoskeletal: No Symptoms Skin: No Symptoms Neurological: No Symptoms Psychological: No Symptoms Endocrine: No Symptoms Hematologic/Lymphatic: No Symptoms Immunological/Allergic: No Symptoms All Other Systems: Reviewed and Negative - Past Medical History Pertinent Past Medical History: Yes Neurological History: Other ENT History: No Pertinent History Cardiac History: No Pertinent History Respiratory History: Asthma Endocrine Medical History: No Pertinent History Musculoskeletal History: No Pertinent History GI Medical History: No Pertinent History History: No Pertinent History Psycho-Social History: Anxiety Male Reproductive Disorders: No Pertinent History Other Medical History: histiocytosis - Past Surgical History Past Surgical History: Yes Neuro Surgical History: Neurological Surgery Cardiac: No Pertinent History Respiratory: No Pertinent History Gastrointestinal: No Pertinent History Genitourinary: No Pertinent History Musculoskeletal: No Pertinent History Male Surgical History: No Pertinent History Other Surgical History: RESECTION OF SKULL LESION, TONSILS/ADENOIDS - Social History Smoking Status: Never smoker Exposure to second hand smoke: No Drug Use: marijuana Patient Lives Alone: No Significant Family History: no pertinent family hx - Nursing Vital Signs Nursing Vital Signs: Initial Vital Signs Temperature 98.6 F 08/19/22 09:22 Pulse Rate 74 08/19/22 09:22 Respiratory Rate 18 08/19/22 09:22 Blood Pressure 163/92 08/19/22 09:22 O2 Sat by Pulse Oximetry 100 08/19/22 09:22 Pain Scale Pain Intensity 0 - Physical Exam General Appearance: no apparent distress, alert, anxiety, thin Eye Exam: PERRL/EOMI, eyes nml inspection Ears, Nose, Throat Exam: normal ENT inspection, moist mucous membranes Neck Exam: normal inspection, non-tender, supple, full range of motion Respiratory Exam: normal breath sounds, lungs clear, airway intact, No chest tenderness, No respiratory distress Cardiovascular Exam: regular rate/rhythm, normal heart sounds, normal peripheral pulses Gastrointestinal/Abdomen Exam: soft, normal bowel sounds, No tenderness Rectal Exam: not done Back Exam: normal inspection, normal range of motion, No CVA tenderness, No vertebral tenderness Extremity Exam: normal inspection, normal range of motion, pelvis stable Neurologic Exam: alert, oriented x 3, cooperative, nail welter II-XII nml as tested, normal mood/affect, nml cerebellar function, nml station & gait, sensation nml Skin Exam: normal color, warm, dry Lymphatic Exam: No adenopathy SpO2 Interpretation: normal O2 Delivery: Room Air - Course Nursing assessment & vital signs reviewed: Yes Ordered Tests: Active Orders 24 hr Category Date Time Status Clean Catch Urine Specimen STAT Care 08/19/22 09:36 Active IV Insertion STAT Care 08/19/22 09:36 Active CBC W DIFF Stat Lab 08/19/22 09:39 Completed CMP Stat Lab 08/19/22 09:39 Completed ETHYL ALCOHOL Stat Lab 08/19/22 09:39 Completed UA W/RFX UR CULTURE Stat Lab 08/19/22 09:39 Completed Urine Triage Profile Stat Lab 08/19/22 09:39 Completed Medication Summary Discontinued Medications Generic Name Dose Route Start Last Admin Trade Name Freq PRN Reason Stop Dose Admin Sodium Chloride 1,000 mls @ 999 mls/hr 08/19/22 09:36 08/19/22 09:40 Sodium Chloride 0.9% 1000 Ml IV 08/19/22 10:36 999 mls/hr .Q1H1M STA Administration Sodium Chloride Confirm 08/19/22 09:39 Sodium Chloride 0.9% 1000 Ml Administered 08/19/22 09:40 Dose 1,000 mls @ ud .ROUTE .STK-MED ONE Sodium Chloride 1,000 mls @ 999 mls/hr 08/19/22 10:18 08/19/22 10:59 Sodium Chloride 0.9% 1000 Ml IV 08/19/22 11:18 999 mls/hr .Q1H1M STA Administration Sodium Chloride Confirm 08/19/22 10:32 Sodium Chloride 0.9% 1000 Ml Administered 08/19/22 10:33 Dose 1,000 mls @ ud .ROUTE .STK-MED ONE Ondansetron HCl 4 mg 08/19/22 10:21 08/19/22 10:33 Ondansetron Hcl 4 Mg/2 Ml Vial IV 08/19/22 10:22 4 mg STAT ONE Administration Ondansetron HCl Confirm 08/19/22 10:32 Ondansetron Hcl 4 Mg/2 Ml Vial Administered 08/19/22 10:33 Dose 4 mg .ROUTE .STK-MED ONE Lab/Rad Data: Laboratory Result Diagrams 08/19/22 09:39 08/19/22 09:39 Laboratory Results 08/19/22 08/19/22 08/19/22 Range/Units 09:39 09:39 09:39 WBC 5.5 (4.0-10.5) x10^3/uL RBC 5.24 (4.1-5.6) x10^6/uL Hgb 15.4 (12.5-18.0) g/dL Hct 46.1 (42-50) % MCV 88.0 (78-100) fL MCH 29.4 (26-32) pg MCHC 33.4 (32-36) g/dL RDW 11.6 (11.5-14.0) % Plt Count 255 (150-450) x10^3/uL MPV 11.4 H (7.5-11.0) fL Gran % 70.8 H (36.0-66.0) % Immature Gran % (Auto) 0.4 (0.00-0.4) % Nucleat RBC Rel Count 0.0 (0.00-0.1) % Eos # (Auto) 0 (0-0.5) x10^3/uL Immature Gran # (Auto) 0.02 (0.00-0.03) x10^3u/L Absolute Lymphs (auto) 1.29 (1.0-4.6) x10^3/uL Absolute Monos (auto) 0.27 (0.0-1.3) x10^3/uL Absolute Nucleated RBC 0.00 (0.00-0.01) x10^3u/L Lymphocytes % 23.5 L (24.0-44.0) % Monocytes % 4.9 (0.0-12.0) % Eosinophils % 0.0 (0.00-5.0) % Basophils % 0.4 (0.0-0.4) % Absolute Granulocytes 3.90 (1.4-6.9) x10^3/uL Basophils # 0.02 (0-0.4) x10^3/uL Sodium 139 (137-145) mmol/L Potassium 4.0 (3.5-5.1) mmol/L Chloride 105 (98-107) mmol/L Carbon Dioxide 16 L* (22-30) mmol/L Anion Gap 21.9 H (5-15) MEQ/L BUN 14 (9-20) mg/dL Creatinine 0.93 (0.66-1.25) mg/dL Estimated GFR > 60.0 ML/MIN Glucose 99 (74-106) mg/dL Calcium 9.8 (8.4-10.2) mg/dL Total Bilirubin 1.20 (0.2-1.3) mg/dL AST 27 (17-59) U/L ALT 15 (0-50) U/L Alkaline Phosphatase 102 (38-126) U/L Serum Total Protein 8.7 H (6.3-8.2) g/dL Albumin 5.1 H (3.5-5.0) g/dL Urine Color (Yellow) Urine Appearance (Clear) Urine pH (4.6-8.0) Ur Specific [place] (1.005-1.030) Urine Protein (Negative) Urine Glucose (UA) (Negative) mg/dL Urine Ketones (Negative) Urine Blood (Negative) Urine Nitrite (Negative) Urine Bilirubin (Negative) Urine Urobilinogen (0.2) mg/dL Ur Leukocyte Esterase (Negative) U Hyaline Cast (Auto) (0-2) /LPF Urine Microscopic RBC (0-5) /HPF Urine Microscopic WBC (0-5) /HPF Ur Epithelial Cells (None Seen) /HPF Urine Bacteria (None Seen) /HPF Urine Culture Reflexed (NO) Urine Opiates Level NEGATIVE (NEGATIVE) Ur Methadone NEGATIVE (NEGATIVE) Urine Barbiturates NEGATIVE (NEGATIVE) Ur Phencyclidine (PCP) NEGATIVE (NEGATIVE) Urine Amphetamine NEGATIVE (NEGATIVE) U Benzodiazepine Level NEGATIVE (NEGATIVE) Urine Cocaine NEGATIVE (NEGATIVE) Urine Marijuana (THC) POSITIVE (NEGATIVE) Ethyl Alcohol < 10 (0-10) mg/dL 08/19/22 Range/Units 09:39 WBC (4.0-10.5) x10^3/uL RBC (4.1-5.6) x10^6/uL Hgb (12.5-18.0) g/dL Hct (42-50) % MCV (78-100) fL MCH (26-32) pg MCHC (32-36) g/dL RDW (11.5-14.0) % Plt Count (150-450) x10^3/uL MPV (7.5-11.0) fL Gran % (36.0-66.0) % Immature Gran % (Auto) (0.00-0.4) % Nucleat RBC Rel Count (0.00-0.1) % Eos # (Auto) (0-0.5) x10^3/uL Immature Gran # (Auto) (0.00-0.03) x10^3u/L Absolute Lymphs (auto) (1.0-4.6) x10^3/uL Absolute Monos (auto) (0.0-1.3) x10^3/uL Absolute Nucleated RBC (0.00-0.01) x10^3u/L Lymphocytes % (24.0-44.0) % Monocytes % (0.0-12.0) % Eosinophils % (0.00-5.0) % Basophils % (0.0-0.4) % Absolute Granulocytes (1.4-6.9) x10^3/uL Basophils # (0-0.4) x10^3/uL Sodium (137-145) mmol/L Potassium (3.5-5.1) mmol/L Chloride (98-107) mmol/L Carbon Dioxide (22-30) mmol/L Anion Gap (5-15) MEQ/L BUN (9-20) mg/dL Creatinine (0.66-1.25) mg/dL Estimated GFR ML/MIN Glucose (74-106) mg/dL Calcium (8.4-10.2) mg/dL Total Bilirubin (0.2-1.3) mg/dL AST (17-59) U/L ALT (0-50) U/L Alkaline Phosphatase (38-126) U/L Serum Total Protein (6.3-8.2) g/dL Albumin (3.5-5.0) g/dL Urine Color Yellow (Yellow) Urine Appearance Clear (Clear) Urine pH 5.5 (4.6-8.0) Ur Specific [place] 1.025 (1.005-1.030) Urine Protein Trace A (Negative) Urine Glucose (UA) Negative (Negative) mg/dL Urine Ketones 80 A (Negative) Urine Blood Negative (Negative) Urine Nitrite Negative (Negative) Urine Bilirubin Negative (Negative) Urine Urobilinogen 1.0 A (0.2) mg/dL Ur Leukocyte Esterase Negative (Negative) U Hyaline Cast (Auto) NONE SEEN (0-2) /LPF Urine Microscopic RBC 0-2 (0-5) /HPF Urine Microscopic WBC 6-10 A (0-5) /HPF Ur Epithelial Cells Rare (None Seen) /HPF Urine Bacteria None Seen (None Seen) /HPF Urine Culture Reflexed NO (NO) Urine Opiates Level (NEGATIVE) Ur Methadone (NEGATIVE) Urine Barbiturates (NEGATIVE) Ur Phencyclidine (PCP) (NEGATIVE) Urine Amphetamine (NEGATIVE) U Benzodiazepine Level (NEGATIVE) Urine Cocaine (NEGATIVE) Urine Marijuana (THC) (NEGATIVE) Ethyl Alcohol (0-10) mg/dL - Progress Progress: improved, re-examined Progress Note: 08/19/22 11:27 I reviewed the emergency department medical records from [facility] emergency department. Patient's viral studies were negative from 08/18/2022. I will not repeat those test today. Patient's medical issue is 1 of moderate complexity. It is based on the pat ient's medical history, complaints, review of the outside records, history of present illness and findings on physical exam. This prompted me to have the patient receive intravenous fluids, obtain blood work and a urinalysis. I reviewed the above-stated studies. Patient appears to be very anxious about his health. However, he does have a degree of dehydration. We provided him with 2 L of intravenous normal saline. Patient will be discharged to home with instructions to drink plenty of clear liquids, advance his diet after he is tolerating clear liquids well, use the Zofran medication as prescribed and keep his appointment with his psychiatrist/psychologist on 08/21/2022. Counseled pt/family regarding: lab results, diagnosis, need for follow-up Medical Desision Making - External Record(s) Reviewed Records reviewed as a part of evaluation & management: Discharge Summary (From the [facility] emergency department) - Discussion of managment Reviewed:: Test results, Need for additional workup Agreed on:: Treatment plan, need for follow-up - Diagnostic Testing Diagnostic test were ordered, analyzed, and reviewed by me: Yes - Risk of complications Minimal Risk: Minimal risk of morbidity - Departure Departure Disposition: Home Clinical Impression: Anxiety about health, Dehydration Condition: Stable Critical Care Time: No Referrals: BHAVESH SINGH [Primary Care Provider] - Follow up/PCP as directed Additional Instructions: Drink plenty of clear liquids. Once you are tolerating clear liquid diet well, advance your diet slowly to a regular diet. Use the Zofran as prescribed to help control nausea. Follow-up with your psychiatrist/psychologist appointment on 08/21/2022. Prescriptions: Ondansetron ODT 4 MG [Zofran Odt 4 mg] 4 mg PO Q6H PRN PRN #10 tablet PRN Reason: Vomiting
[2022-08-19] MEDS ORDERED: Sodium Chloride 0.9% 1000 ML 1,000 ML IV STA ×2 (09:36→10:18)
[2022-08-19] MEDS ORDERED: Sodium Chloride 0.9% 1000 ML 1,000 ML ONE ×2 (09:39→10:32)
[2022-08-19 09:59] LABS: BASOPHIL % 0.4 % (0.0-0.4); Basophil (Absolute #) 0.02 x10^3/uL (0-0.4); Eosinophil (Absolute #) 0 x10^3/uL (0-0.5); Hematocrit 46.1 % (42-50); Hemoglobin 15.4 g/dL (12.5-18.0); IMMATURE GRAN # 0.02 x10^3u/L (0.00-0.03); IMMATURE GRAN % 0.4 % (0.00-0.4); Lymphocyte (Absolute #) 1.29 x10^3/uL (1.0-4.6); Lymphocytes % 23.5 % (24.0-44.0); Mean Corpuscular Hemoglobin 29.4 pg (26-32); Mean Corpuscular Hgb Concent. 33.4 g/dL (32-36); Mean Platelet Volume 11.4 fL (7.5-11.0); Monocyte (Absolute #) 0.27 x10^3/uL (0.0-1.3); Monocytes % 4.9 % (0.0-12.0); Neutrophil % 70.8 % (36.0-66.0); Platelet Count 255 x10^3/uL (150-450); Red Blood Count 5.24 x10^6/uL (4.1-5.6); Red Cell Distribution Width 11.6 % (11.5-14.0); White Blood Count 5.5 x10^3/uL (4.0-10.5)
[2022-08-19 10:12] LABS: Amphetamine,Urine NEGATIVE (NEGATIVE); Barbiturate,Urine NEGATIVE (NEGATIVE); Benzodiazepine,Urine NEGATIVE (NEGATIVE); Cocaine,Urine NEGATIVE (NEGATIVE); Methadone,Urine NEGATIVE (NEGATIVE); Opiate,Urine NEGATIVE (NEGATIVE); PCP,Urine NEGATIVE (NEGATIVE); THC,Urine POSITIVE (NEGATIVE)
[2022-08-19 10:13] LABS: Appearance Clear (Clear); Bacteria None Seen /HPF (None Seen); Bilirubin Negative (Negative); Blood Negative (Negative); Epithelial Cells Rare /HPF (None Seen); Glucose, Urine Negative (Negative); Hyaline Casts NONE SEEN /LPF (0-2); Ketones 80 (Negative); Leukocyte Esterase Negative (Negative); Nitrite Negative (Negative); Ph 5.5 (4.6-8.0); Protein,Urine Dip Trace (Negative); RBC 0-2 /HPF (0-5); Specific Gravity 1.025 (1.005-1.030)
[2022-08-19 10:14] LABS: ADD URINE CULTURE? NO (NO); ALBUMIN 5.1 g/dL (3.5-5.0); ALKALINE PHOSPHATASE 102 U/L (38-126); ANION GAP 21.9 MEQ/L (5-15); BLOOD UREA NITROGEN 14 mg/dL (9-20); CHLORIDE 105 mmol/L (98-107); Calcium 9.8 mg/dL (8.4-10.2); Creatinine 1 0.93 mg/dL (0.66-1.25); EST GLOMERULAR FILTRATION RATE > 60.0 ML/MIN; ETHYL ALCOHOL < 10 mg/dL (0-10); Glucose 99 mg/dL (74-106); SGOT/AST 27 U/L (17-59); SGPT/ALT 15 U/L (0-50); SODIUM 139 mmol/L (137-145); Total Protein 8.7 g/dL (6.3-8.2)
[2022-08-19 10:15] LABS: Carbon Dioxide 16 mmol/L (22-30)
[2022-08-19] MEDS ORDERED: Zofran 4 MG/2 ML VIAL IV ONE (10:21)
[2022-08-19] MEDS ORDERED: Zofran 4 MG/2 ML VIAL ONE (10:32)
[2022-08-19 11:15] VITALS: BP 131/68; PULSE 72; O2SAT 99
== END 2022-08-19 11:49 | disposition home or self-care (01) ==
LOC: ED 09:13
DX: F45.9 Somatoform disorder, unspecified (principal); E86.0 Dehydration; R53.1 Weakness; Z79.899 Other long term (current) drug therapy; Z28.310 Unvaccinated for COVID-19
CPT/HCPCS: 36000; 36415; 80053; 80307; 81001; 82077; 85025; 96360; 96374; 99284; J2405